=== PATIENT | female | born 1990 | race American Indian/Alaskan Native ===

== ENCOUNTER 2017-05-30 10:43 | Emergency (ER) | payer MEDICAID ==
[2017-05-30 11:53] LABS: Basophils # (Auto) 0.1 K/mm3 (0.0-0.1); Eosinophils # (Auto) 0.2 K/mm3 (0.0-0.4); Eosinophils % (Auto) 2.8 % (0.0-4.3); Hematocrit 39.9 % (30.3-42.9); Hemoglobin 13.4 gm/dl (10.1-14.3); Lymphocytes # (Auto) 1.2 K/mm3 (1.2-5.4); Lymphocytes % (Auto) 16.7 % (13.4-35.0); Mean Corpuscular HGB Conc 34 % (30-34); Mean Corpuscular Hemoglobin 29 pg (28-32); Mean Corpuscular Volume 85 fl (79-97); Monocytes # (Auto) 0.4 K/mm3 (0.0-0.8); Monocytes % (Auto) 4.9 % (0.0-7.3); Platelet Count 213 K/mm3 (140-440); Red Blood Count 4.67 M/mm3 (3.65-5.03); Red Cell Distribution Width 13.8 % (13.2-15.2)
[2017-05-30 12:04] LABS: Bacteria,Urine 1+ /HPF (Negative); Bilirubin,Urine NEG (Negative); Blood,Urine LG (Negative); Color,Urine Yellow (Yellow); Mucus,Urine 3+ /HPF; Nitrite,Urine NEG (Negative); Urobilinogen,Urine < 2.0 mg/dL (<2.0)
--- NOTE | 2017-05-30 13:39 | Emergency Department Report ---
ED Female HPI - General Chief complaint: Vaginal Bleeding Stated complaint: CRAMPING. VAG BLEEDING, VOMITING Time Seen by Provider: 05/30/17 13:10 Source: patient Mode of arrival: Ambulatory Limitations: No Limitations - History of Present Illness Initial comments: Report vaginal bleeding since Tuesday. She went to be monitored [facility] and they did ultrasound on her along with pelvic exam and pelvic ultrasound did show that her baby was in the uterus but she has a sub-chorionic bleed. She said they told her to follow-up in 3 days for repeat blood level to check if it' s falling and also repeat ultrasound. She says she does not want a vaginal ultrasound because she was told that frequent examination of her vaginal area can make bleeding worse. She says she wants to have the abdominal ultrasound and blood work done. Patient says she is still bleeding and she called [employer] COUNTER CLERK and he sent her to the emergency room. Patient subsequently because she says she's been going to my [employer] CLEANING COUNTER CLERK for 10 years since she was 16 and they told her that they could not see her today. She says she is having lower abdominal pain 10 out of 10 that is cramping. Denies any nausea or vomiting. Denies any urinary burning frequency or urgency. No medication taken for pain. Nothing makes it better and nothing makes it worse. MD Complaint: vaginal bleeding, pelvic pain Onset/Timin -: days(s) Location: suprapubic Radiation: non-radiating Severity: severe Severity scale (0 -10): 10 Quality: cramping Consistency: intermittent Improves with: none Worsens with: none Are you Now?: Yes Last Menstrual Period: 04/12/17 EDC: 01/17/18 Associated Symptoms: vaginal bleeding, abdominal pain. denies: vaginal discharge, nausea/vomiting, fever/chills, headaches, loss of appetite, dysuria, hematuria, rash, seizure, shortness of breath, syncope - Related Data Sexually active: Yes Previous Rx's Medication Instructions Recorded Last Taken Type Albuterol Sulfate [Ventolin HFA] 2 puff IH Q4H PRN #1 hfa.aer.ad 12/13/13 Unknown Rx Doxycycline [Vibramycin CAP] 100 mg PO BID #20 capsule 12/13/13 Unknown Rx predniSONE [Deltasone] 50 mg PO QDAY #5 tab 12/13/13 Unknown Rx metroNIDAZOLE [Flagyl] 500 mg PO BID #20 tablet 12/14/13 Unknown Rx Nitrofurantoin Monohyd/M-Cryst 100 mg PO Q12H 7 Days #14 capsule 05/30/17 Unknown Rx [Macrobid 100 mg Capsule] Allergies Allergy/AdvReac Type Severity Reaction Status Date / Time amoxicillin [Amoxicillin] Allergy Unknown Verified 07/05/14 11:13 ED Review of Systems ROS: Stated complaint: CRAMPING. VAG BLEEDING, VOMITING Other details as noted in HPI Comment: All other systems reviewed and negative Constitutional: no symptoms reported Respiratory: no symptoms reported Cardiovascular: denies: chest pain, palpitations, dyspnea on exertion, orthopnea , syncope, paroxysmal nocturnal dyspnea Gastrointestinal: abdominal pain. denies: nausea, vomiting, diarrhea, constipation, hematemesis, melena, hematochezia Genitourinary: denies: urgency, dysuria, frequency, hematuria, discharge Musculoskeletal: denies: back pain, arthralgia, myalgia Skin: denies: rash Neurological: denies: headache, abnormal gait, vertigo ED Past Medical Hx - Past Medical History Previous Medical History?: No Hx Hypertension: No Hx Heart Attack/AMI: No Hx Congestive Heart Failure: No Hx Diabetes: No Hx Deep Vein Thrombosis: No Hx Pulmonary Embolism: No Hx Liver Disease: No Hx Renal Disease: No Hx Sickle Cell Disease: No Hx Headaches / Migraines: No Hx Seizures: No Hx Kidney Stones: No Hx Psychiatric Treatment: No Hx Asthma: No Hx COPD: No Hx HIV: No - Surgical History Past Surgical History?: Yes Additional Surgical History: 2009 - Family History Family history: no significant - Social History Smoking Status: Never Smoker Substance Use Type: None - Medications Home Medications: Home Medications Medication Instructions Recorded Confirmed Last Taken Type Albuterol Sulfate [Ventolin HFA] 2 puff IH Q4H PRN #1 hfa.aer.ad 12/13/13 Unknown Rx Doxycycline [Vibramycin CAP] 100 mg PO BID #20 capsule 12/13/13 01/14/15 Unknown Rx predniSONE [Deltasone] 50 mg PO QDAY #5 tab 12/13/13 01/14/15 Unknown Rx metroNIDAZOLE [Flagyl] 500 mg PO BID #20 tablet 12/14/13 01/14/15 Unknown Rx Nitrofurantoin Monohyd/M-Cryst 100 mg PO Q12H 7 Days #14 capsule 05/30/17 Unknown Rx [Macrobid 100 mg Capsule] ED Physical Exam - General Limitations: No Limitations General appearance: alert, in no apparent distress - Head Head exam: Present: atraumatic, normocephalic - Eye Eye exam: Present: normal appearance, PERRL, EOMI Pupils: Present: normal accommodation - ENT ENT exam: Present: normal exam, normal orophraynx, mucous membranes moist - Neck Neck exam: Present: normal inspection, full ROM. Absent: tenderness, meningismus, lymphadenopathy, thyromegaly - Respiratory Respiratory exam: Present: normal lung sounds bilaterally. Absent: respiratory distress, wheezes, rales, rhonchi, stridor, chest wall tenderness, accessory muscle use, decreased breath sounds, prolonged expiratory - Cardiovascular Cardiovascular Exam: Present: regular rate, normal rhythm, normal heart sounds. Absent: systolic murmur, diastolic murmur - GI/Abdominal GI/Abdominal exam: Present: soft, normal bowel sounds. Absent: distended, tenderness, guarding, rebound, rigid, diminished bowel sounds, hyperactive bowel sounds, hypoactive bowel sounds, organomegaly, bruit, pulsatile mass, hernia - External exam: Present: bleeding (scant bleeding). Absent: erythema, swelling, lesions, lacerations, ecchymosis - Extremities Exam Extremities exam: Present: normal inspection, full ROM, normal capillary refill , other (no clubbing, cyanosis or edema. +2+ distal extremities. No neurovascular compromise.). Absent: tenderness, pedal edema, joint swelling, calf tenderness - Back Exam Back exam: Present: normal inspection, full ROM. Absent: tenderness, CVA tenderness (R), CVA tenderness (L), muscle spasm, paraspinal tenderness, vertebral tenderness, rash noted - Neurological Exam Neurological exam: Present: alert, oriented X3, normal gait, reflexes normal. Absent: motor sensory deficit - Psychiatric Psychiatric exam: Present: normal affect, normal mood - Skin Skin exam: Present: warm, dry, intact, normal color. Absent: rash ED Course Vital Signs 05/30/17 11:10 Temperature 98.1 F Pulse Rate 74 Respiratory 14 Rate Blood Pressure 97/65 O2 Sat by Pulse 100 Oximetry Vital Signs 05/30/17 11:10 Temperature 98.1 F Pulse Rate 74 Respiratory 14 Rate Blood Pressure 97/65 O2 Sat by Pulse 100 Oximetry - Reevaluation(s) Reevaluation #1: 05/30/17 14:09 Patient hair reports that she is 6 weeks and she sees my [employer]Y CLE[employer]ING COUNTER CLERK she's been going to for over 10 years. She says she has been having vaginal bleedingand she called my [employer]Y CLEANING COUNTER CLERK and told her to come to the hospital because she is too early to be seen. Patient abdominal exam is normal and lab work to include CBC, urinalysis and quantitative hCG done. CBC is stable, quantitative hCG is greater than 33,000 and patient said 3 days ago he was at 12,[address] [facility]. She does have a UTI and her urine was contaminated. Patient was given Rocephin and normal saline IV 1 L. She is not having any pain at present. Reevaluation #2: 05/30/17 15:11 Patient stable and awaiting in ultrasound to be done. Abdominal exam is normal. This case was discussed with Dr. Scott Reevaluation #3: 05/30/17 16:23 Pt stable. No abdominal pain. awaiting U/S report Reevaluation #4: 05/30/17 18:29 Patient is stable. No active vaginal bleeding at present. Abdominal assessment remains the same. I spoke with Dr. Manohar Pritchard along with all other lab results with patient. ED Medical Decision Making - Lab Data Result diagrams: 05/30/17 11:31 Lab Results 05/30/17 05/30/17 05/30/17 Range/Units 11:16 11:31 11:31 WBC 7.4 (4.5-11.0) K/mm3 RBC 4.67 (3.65-5.03) M/mm3 Hgb 13.4 (10.1-14.3) gm/dl Hct 39.9 (30.3-42.9) % MCV 85 (79-97) fl MCH 29 (28-32) pg MCHC 34 (30-34) % RDW 13.8 (13.2-15.2) % Plt Count 213 (140-440) K/mm3 Lymph % (Auto) 16.7 (13.4-35.0) % [place] % (Auto) 4.9 (0.0-7.3) % Eos % (Auto) 2.8 (0.0-4.3) % Baso % (Auto) 1.0 (0.0-1.8) % Lymph # 1.2 (1.2-5.4) K/mm3 [place] # 0.4 (0.0-0.8) K/mm3 Eos # 0.2 (0.0-0.4) K/mm3 Baso # 0.1 (0.0-0.1) K/mm3 Seg Neutrophils % 74.6 H (40.0-70.0) % Seg Neutrophils # 5.6 (1.8-7.7) K/mm3 HCG, Quant 93283 H (0-4) mIU/mL Urine Color Yellow (Yellow) Urine Turbidity Cloudy (Clear) Urine pH 5.0 (5.0-7.0) Ur Specific [place] 1.028 (1.003-1.030) Urine Protein 30 mg/dl (Negative) mg/dL Urine Glucose (UA) Neg (Negative) mg/dL Urine Ketones Neg (Negative) mg/dL Urine Blood Lg (Negative) Urine Nitrite Neg (Negative) Urine Bilirubin Neg (Negative) Urine Urobilinogen < 2.0 (<2.0) mg/dL Ur Leukocyte Esterase Lg (Negative) Urine WBC (Auto) 33.0 H (0.0-6.0) /HPF Urine RBC (Auto) 7.0 (0.0-6.0) /HPF U Epithel Cells (Auto) 120.0 H (0-13.0) /HPF Urine Bacteria (Auto) 1+ (Negative) /HPF Urine Mucus 3+ /HPF Urine culture sent and pending - Radiology Data Radiology results: report reviewed Ultrasound transabdominal reveal patient with gestational sac. No yolk sac or pole identified. Could reflect blighted ova versus very early gestation. Large subchorionic hemorrhage noted. Continued follow-up is in correlation with quantitative beta hCG is recommended. Patient beta hCG today is at 33,677 and she reported that it was 12,003 days ago. - Medical Decision Making ED course: Patient reports that she is having vaginal bleeding since Tuesday and she went to [facility] where they did a transvaginal ultrasound and abdominal ultrasound OB. She said that she is 6 weeks and she was told that she might be having a miscarriage. She reported that she was told to [facility] that she needs to follow up to have repeat blood work and ultrasound done. Patient says she called my [employer] COUNTER CLERK this morning and they told her to come to the hospital. Patient reports that she is still having vaginal bleeding and abdominal cramps. CBC normal, serum quantitative hCG at 33,677 patient reports that it was at 12,000+ on Tuesday at [facility]. Patient did not want to have vaginal OB ultrasound today because she's was told by the doctor at [facility] that she is running a risk for any kind of instrumentation of her vaginal area due to threatened miscarriage. Patient says she is here for abdominal ultrasound and to get repeat blood work done. Ultrasound transabdominal OB less than 14 weeks revealed patient with gestational sac. No yolk sac or pole identified. Blighted ovum versus early gestation. Large subchorionic hemorrhage noted. Radiologist recommended follow-up quantitative hCG. Her quantitative hCG per patient reports when compared to today's result is increasing. Patient denies passing any clots. She is not having any abdominal pain at present. Patient also found to have acute cystitis and she was given normal saline 1 L IV fluid and Rocephin 1 g IV. I discussed patient laboratory results and ultrasound results and I told her that she'll need to call [employer]TER CLERK office tomorrow to schedule an appointment for follow-up visit tomorrow and that she should ask for Dr. Reynolds. I discussed with her that she needs to go home and not do any strenuous activity and increase her fluid intake. Patient was understanding of discharge instructions and diagnosis of threatened miscarriage. Discharged from ED in stable condition with prescriptions for Macrobid and to follow-up with my OB/ DIE TESTER tomorrow. Patient able to tolerate crackers and oral liquid in emergency room without any nausea or vomiting. Critical care attestation.: If time is entered above; I have spent that time in minutes in the direct care of this critically ill patient, excluding procedure time. ED Disposition Clinical Impression: Threatened miscarriage in early , Vaginal bleeding, Pelvic cramping Subchorionic hemorrhage Qualifiers: Fetus number: single or unspecified fetus Trimester: first trimester Qualified Code(s): O41.8X10 - Other specified disorders of amniotic fluid and membranes, first trimester, not applicable or unspecified Acute cystitis during Qualifiers: Trimester: first trimester Qualified Code(s): O23.11 - Infections of bladder in , first trimester Disposition: DC-01 TO HOME OR SELFCARE Is pt being admited?: No Does the pt Need Aspirin: No Condition: Stable Instructions: Threatened Miscarriage (ED), Urinary Tract Infection in Women (ED ), Abdominal Pain in (ED) Additional Instructions: Please follow-up with your [employer] CLE[employer]ING COUNTER CLERK at my [employer] [facility] [facility] tomorrow morning. I spoke with Dr. Reynolds and she wants you to call and let front office know that you were seen in emergency room and to inform her so she can schedule an appointment for you. please increase her fluid intake to 2-3 L of fluid per day. You have a urinary tract infection and will need to take Macrobid as instructed Refrain from strenuous activity and I recommend bedrest. Prescriptions: Nitrofurantoin Monohyd/M-Cryst [Macrobid 100 mg Capsule] 100 mg PO Q12H 7 Days # 14 capsule Referrals: PRIMARY CAREMD [Primary Care Provider] - 3-5 Days [facility] [Provider Group] - 05/31/17 (I spoke with Dr. Reynolds and she wants you to follow up in the morning) Forms: Work/School Release Form(ED)
[2017-05-30] MEDS ORDERED: NACL 0.9% 1000 ML 1,000 ML IV ONE (13:47)
[2017-05-30] MEDS ORDERED: cefTRIAXone 1 GM in NACL 0.9% 20 ML IV ONE (13:47)
--- NOTE | 2017-05-30 17:55 | Ultrasound Report ---
FINAL REPORT EXAM: US OB < = 14 WEEKS FETUS HISTORY: vaginal bleeding followup TECHNIQUE: Obstetrical ultrasound transabdominal PRIORS: None. FINDINGS: Patient refused TV exam There is gestational sac present with mean sac diameter 1.5 centimeters corresponding to an estimated gestational age by sac size of 6 weeks 2 days There is no yolk sac or pole identified There is a large subchorionic hemorrhage 4.2 x 2.2 x 2.4 centimeters adjacent to the gestational sac. The uterus is 9.8 x 5.4 x 6.5 centimeters. The ovaries were not identified sonographically IMPRESSION: Gestational sac. No yolk sac or pole identified. Could reflect blighted ovum versus very early gestation Large subchorionic hemorrhage Continued followup in correlation with quantitative beta HCG is recommended
[2017-05-30 19:01] VITALS: BP 115/70
== END 2017-05-30 19:00 | disposition home or self-care (01) ==
LOC: ED 10:43
DX: O20.0 Threatened abortion (principal); Z3A.01 Less than 8 weeks gestation of pregnancy
CPT/HCPCS: 36415; 76801; 81001; 84702; 85025; 87086; 96361; 96365; 99284; J0696; J7030

== ENCOUNTER 2019-01-08 20:17 | Outpatient (CLI) | payer MEDICAID ==
--- NOTE | 2019-01-08 23:48 | Ultrasound Report ---
US OB >= 14 weeks Fetus INDICATION / CLINICAL INFORMATION: Vaginal bleeding. COMPARISON: None available. FINDINGS: There is a single intrauterine with an estimated sonographic gestational age of 32 weeks 3 days and an CLEO of 03/02/2019. Clinical dates are 31 weeks 3 days. presentation is cephalic. Th e placenta is located anteriorly, is grade 1 and is free of the os. Amniotic fluid volume is normal w ith an GISELLE of 23.7 cm. The cervix measures 3.3 cm in length and the internal os is closed. Neither ov mary is seen. The heart rate is 149 bpm. The intracranial and spinal anatomy are normal. A four-chamber heart view is seen. The stomach, kidneys, diaphragm and urinary bladder are normal. There is a three-vessel umbilical cord which inserts normally on the abdomen. No anomalies are seen . IMPRESSION: Single viable 32 week 3 day intrauterine without complication. Signer Name: William Palacio MD Signed: 01/08/2019 11:44 PM Workstation Name: [id number]
== END 2019-01-08 23:21 | disposition home or self-care (01) ==
LOC: TRG 20:17
PROVIDERS: ATTEND Obstetrics & Gynecology
DX: O46.93 Antepartum hemorrhage, unspecified, third trimester (principal); Z3A.32 32 weeks gestation of pregnancy
CPT/HCPCS: 76805

== ENCOUNTER 2019-01-25 14:54 | Outpatient (CLI) | payer MEDICAID ==
[2019-01-25] MEDS ORDERED: LACTATED RINGERS 1,000 ML IV SCH (16:00)
[2019-01-25 17:17] VITALS: BP 103/53
--- NOTE | 2019-01-25 18:04 | Event Note ---
Date: 01/25/19 Spoke with motor builder assembler, Cha, as patient was being transported for US- RN reports cat 1, reactive heart tracing, baseline 130, mod variability, accelerations with no decels. She reports VSSAF and that patient reports +FM while on monitor. Upon arrival back to triage, Cha RN reports prelim BPP 8/8 and GISELLE WNL, patient being placed back on monitor at this time. Notified RN to keep pt on monitor until US report finalizes. Called radiology and spoke to [facility] who reports finalized reports should be available in EMR "within 30 minutes".
--- NOTE | 2019-01-25 18:52 | Ultrasound Report ---
Limited obstetrical ultrasound INDICATION: Decreased movement Limited study shows an intrauterine . Fetus is in a cephalic position. heart rate was measured at 165 bpm. Amniotic fluid volume appears qualitatively within normal limits and GISELLE is with in normal limits at 13.7 cm. I do not have detailed images of the little anatomy. Placenta is only pa rtially viewed on these available images but appears to be anterior and is free of the internal cervi diego os. Biophysical profile Biophysical profile was scored at 8/8 which is within normal limits. IMPRESSION: Limited evaluation shows no significant abnormalities. Signer Name: Robles Kraus MD Signed: 01/25/2019 6:48 PM Workstation Name: [id number]
== END 2019-01-25 19:15 | disposition home or self-care (01) ==
LOC: TRG 14:54
PROVIDERS: ATTEND Obstetrics & Gynecology
DX: O36.8130 Decreased fetal movements, third trimester, not applicable or unspecified (principal); Z3A.33 33 weeks gestation of pregnancy
CPT/HCPCS: 59025; 76815; 76819